=== PATIENT | female | born 1980 | race Two or more races ===

== ENCOUNTER 2023-12-25 07:42 | Emergency (ER) | payer MEDICAID, OTHER ==
[~2023-12-25] VITALS: Ht 160 cm; Wt 90.0 kg
[2023-12-25 07:57] VITALS: BP 150/97; PULSE 87; RESP 16; O2SAT 100
[2023-12-25] MEDS ORDERED: ACETAMINOPHEN 500 MG TAB PO ONE (11:15)
== END 2023-12-25 20:47 | disposition left against medical advice (07) ==
LOC: ER 07:42
DX: S09.90XA Unspecified injury of head, initial encounter (principal); Y04.2XXA Assault by strike against or bumped into by another person, initial encounter; Y93.89 Activity, other specified; Y92.89 Other specified places as the place of occurrence of the external cause; Y99.8 Other external cause status